=== PATIENT | female | born 1990 | race Caucasian/White ===

== ENCOUNTER 2020-07-01 08:08 | Outpatient (RCR) | payer OTHER, SELFPAY ==
[2020-06-29 15:16] LABS: Basophils Percent Auto 0.4 % (0.2-1.2); Eosinophils Absolute Auto 0.1 K/mm3 (0-0.3); Eosinophils Percent Auto 1.3 % (0-4.4); Hematocrit 36.9 % (37.0-47.0); Hemoglobin 12.6 g/dL (12.0-15.0); Immature Granulocyte Absolute 0.03 K/mm3 (0.00-0.031); Immature Granulocyte Percent A 0.3 % (0-0.5); Lymphocytes Absolute Auto 2.65 K/mm3 (0.9-3.2); Lymphocytes Percent Auto 25.5 % (18.3-44.2); Mean Corpuscular HGB Conc 34.1 g/dl (32-36); Mean Corpuscular Hemoglobin 30.7 pg (26-34); Mean Corpuscular Volume 89.8 fl (80-100); Mean Platelet Volume 10.9 fl (7.4-10.4); Monocytes Absolute Auto 0.5 K/mm3 (0.1-0.6); Monocytes Percent Auto 4.4 % (2.6-8.5); Neutrophils Absolute Auto 7.1 K/mm3 (1.3-6.7); Neutrophils Percent Auto 68.1 % (45.5-73.1); Platelet Count Result 257 k/mm3 (150-375); Red Blood Count 4.11 M/mm3 (4.2-5.4); Red Cell Distribution Width 13.4 % (11.5-14.5); White Blood Count 10.4 K/mm3 (4.5-10.0)
[2020-06-29 15:23] LABS: Hemoglobin A1C 4.8 % (<5.7)
[2020-06-29 16:10] LABS: HIV 1/2 Ab P24 Ag Result Negative (Negative)
[2020-06-29 16:29] LABS: Vitamin D 25 Hydroxy 41.4 ng/mL
[2020-06-29 16:43] LABS: Hepatitis B Surface Antigen Negative (Negative)
[2020-06-30 13:21] LABS: Rapid Plasma Reagin Non-Reactive (NonReactive)
[2020-07-01] MEDS: RHO(D) IMMUNE GLOBULIN 300 MCG SYRINGE IM (16:56)
== END 2020-07-01 23:08 | disposition home or self-care (01) ==
LOC: ANHLAB 08:08
PROVIDERS: Visit Provider Nurse Practitioner
DX: Z29.13 Encounter for prophylactic Rho(D) immune globulin (principal); Z11.4 Encounter for screening for human immunodeficiency virus [HIV]; O36.0990 Maternal care for other rhesus isoimmunization, unspecified trimester, not applicable or unspecified; Z3A.00 Weeks of gestation of pregnancy not specified
CPT/HCPCS: 36415; 82306; 83036; 85025; 85461; 86592; 86703; 86762; 87340; 90384; 96372; G0432; J2790

== ENCOUNTER 2020-08-19 16:13 | Outpatient (CLI) | payer OTHER, SELFPAY ==
--- NOTE | ~2020-08-19 | US_ITS ---
EXAMINATION: US OB /maternal detail DATE: 08/19/2020 18:00 INDICATION: survey TECHNIQUE: Multiple obstetric sonographic images performed. FINDINGS: No prior studies for comparison. There is a single living fetus in variable presentation. The placenta is anterior without placenta p revia. Amniotic fluid volume is normal. WILMER measures 15.1 cm. cardiac activity and movement is noted with a heart rate of 1:30 beats per minute. The following anatomy was identified as normal: 4 chamber heart 3 vessel cord cord insertion kidneys urinary bladder stomach diaphragm ventricles cisterna magna cerebellum The spine is not well visualized due to lie. Recommend attention on the spine on subsequent katiuska dy. The following biometric data were obtained: BPD: 46mm corresponds to gestational age 19 weeks 6 days. Head circumference: 173 mm corresponds to gestational age 19 weeks 6 days. Abdominal circumference: 146 mm corresponds to gestational age 19 weeks 6 days. Femur length: 31 mm corresponds to gestational age 19 weeks 4 days. Head circumference to abdominal circumference ratio: 1.18 (normal range for expected gestational age is 1.08-1.26). Estimated weight: 311 grams +/- 47 grams using Hadlock method. IMPRESSION: 1: Single living intrauterine with an estimated gestational age of 19weeks 6days by current ultrasound measurements, with an EDC of 01/07/2021 in variable presentation. 2. Limited visualization of the spine due to lie. Otherwise, unremarkable survey. Recomm end attention of the spine on subsequent studies. Reviewed, dictated and finalized at location B. EOTYPER APPRENTICE IMPRESSION: 1: Single living intrauterine with an estimated gestational age of 19 weeks 6days by current ultrasound measurements, with an EDC of 01/07/2021 in [place] iable presentation. 2. Limited visualization of the spine due to lie. Otherwise, unremarkabl e survey. Recommend attention of the spine on subsequent studies.
== END 2020-08-19 16:14 | disposition home or self-care (01) ==
PROVIDERS: Visit Provider Obstetrics & Gynecology Gynecology
DX: Z34.92 Encounter for supervision of normal pregnancy, unspecified, second trimester (principal); Z3A.19 19 weeks gestation of pregnancy
CPT/HCPCS: 76805

== ENCOUNTER 2020-09-14 09:37 | Outpatient (CLI) | payer OTHER, SELFPAY ==
--- NOTE | ~2020-09-14 | US_ITS ---
EXAMINATION: US OB follow up DATE: 09/14/2020 10:16 INDICATION: Incomplete second trimester anatomic survey TECHNIQUE: Real-time ultrasound of the pelvis was performed. The interpreting radiologist was not pre sent for the study. COMPARISON: 08/19/2020 FINDINGS: There is a single living fetus in vertex presentation. The placenta is anterior and 2.3 cm from the internal cervical os. cardiac activity and movement are noted. heart rate is 138 beats per minute (bpm). The amniotic fluid index is subjectively normal. The spine is no rmal in appearance. The following biometric data were obtained: Biparietal diameter (BPD): 5.7 cm; head circumference (HC): 22.7 cm; abdominal circumference (AC): 20 .2 cm; femur length (FL): 4.3 cm. These measurements are concordant. Estimated weight is 706 g +/- 105 g, which correlates with the 85th percentile when 01/07/2021 i s used as estimated date of delivery. As single measurements, these parameters are each equal to the following estimated gestational ages w ith ranges of +/- 2 standard deviations: BPD: 23 weeks 5 days +/- 1 weeks 5 days. HC: 24 weeks 5 days +/- 2 weeks 0 days. AC: 24 weeks 6 days +/- 2 weeks 1 days. FL: 24 weeks 1 days +/- 2 weeks 1 days. estimated gestational age based solely on measurements from this exam is 24 weeks 3 days +/- 1 weeks 5 days. IMPRESSION: 1. Single living fetus in vertex presentation. 2. Normal-appearing spine. 3. Estimated weight is 706 g +/- 105 g, which correlates with the 85th percentile when 1 is used as estimated date of delivery. Reviewed, dictated and finalized at location A. TECHNICIAN IMPRESSION: 1. Single living fetus in vertex presentation. 2. Normal-appearing spine. 3. Estimated weight is 706 g +/- 105 g, which correlates with the 85th pe rcentile when 01/07/2021 is used as estimated date of delivery.
== END 2020-09-14 09:38 | disposition home or self-care (01) ==
PROVIDERS: PCP Family Medicine; Visit Provider Obstetrics & Gynecology Gynecology
DX: Z34.92 Encounter for supervision of normal pregnancy, unspecified, second trimester (principal); Z3A.24 24 weeks gestation of pregnancy
CPT/HCPCS: 76816

== ENCOUNTER 2020-10-15 07:31 | Outpatient (RCR) | payer OTHER, SELFPAY ==
[2020-10-15 08:53] LABS: Hemoglobin 10.5 g/dL (12.0-15.0)
[2020-10-15 09:04] LABS: Glucose 1 Hour PP 50gm Dose 167 mg/dL
[2020-10-15 09:46] LABS: HIV 1/2 Ab P24 Ag Result Negative (Negative)
[2020-10-15] MEDS: RHO(D) IMMUNE GLOBULIN 300 MCG SYRINGE IM (15:24)
--- NOTE | 2021-01-04 07:30 | P.HP_ITS ---
H&P: HPI History of Present Illness Date/Time: 01/04/21 07:30 The patient is a 30-year-old 3 para 2 admitted at 39 weeks for repeat section. The patient has had gestational diabetes controlled with insulin and diet. nonstress tests have been reactive. labs O negative rubella immune RPR negative hepatitis-B surface antigen negative and HIV negative. Group B strep culture also negative. Patient has had 2 prior sections and presents today for delivery. Chief Complaint: 39 weeks for delivery Review of Systems Review of Systems: Narrative: not repeated day of surgery; patient states no changes in status [facility] Surgical History Surgical History (Updated 01/04/21 @ 07:33 by Peg Galicia MD) S/P x 2 Family History Family History (Updated 12/18/20 @ 12:38 by Jameson Kyle RN) Grandparent Breast cancer in female Legally blind Father Hx of heart artery stent Social History Social History Smoking status: Never smoker Substance use: never Spiritual care concerns: No Meds Home Medications and Allergies Home Medications Medication Instructions Recorded Confirmed Type ergocalciferol (vitamin D2) 1,250 mcg PO WEEKLY 12/18/20 12/18/20 History [Vitamin D2] ferrous sulfate 325 mg PO BID 12/18/20 12/18/20 History insulin NPH isoph U-100 human 10 unit SUBCUT HS 12/18/20 12/18/20 History [Humulin N NPH U-100 Insulin] prenat.vits,sawyer,uub-romh-kcflg 1 tablet PO DAILY 12/18/20 12/18/20 History [ #2] Allergies Allergy/AdvReac Type Severity Reaction Status Date / Time No Known Allergies Allergy Verified 12/18/20 12:30 Exam Const: General: comfortable and no acute distress Resp: Effort & Inspection: normal respiratory effort Auscultation: clear to auscultation bilaterally Cardio: Rate: regular rate Rhythm: regular rhythm GI: GI Palp: No abdominal tenderness, Yes Soft to palpation and Yes Other GI palpation findings present (FH 39 cm) Assessment and Plan Assessment and plan (1) 39 weeks gestation of : Code(s): Z3A.39 - 39 weeks gestation of Status: Acute (2) History of : Code(s): Z98.891 - History of uterine scar from previous surgery Status: Acute Assessment and Plan: plan to proceed with repeat (3) GDM, class A2: Code(s): O24.419 - Gestational diabetes mellitus in , unspecified control Status: Acute Assessment and Plan: plan 6 wk pp 2 hour GTT
--- NOTE | 2021-01-04 07:30 | WPDHPUPDATE1 ---
History and Physical Update Update Date/Time: 01/04/21 07:30 History and Physical has been reviewed, including an updated exam of the patient. There are NO changes in the patient's condition. Risks, benefits, and alternatives have been discussed and questions answered. Patient agrees to proceed with procedure.
--- NOTE | 2021-01-04 08:27 | WPDANESEPPF ---
Anes - Initial Pre Proc Eval Procedure: Operation Date: 01/04/21 09:00 Proposed Procedures p Repeat Section - Peg Galicia MD Date/Time: 01/04/21 08:27 Surgeon: Peg Galicia MD Pre Op Diagnosis: z34.93, Previous Patient Data Age: 30 Gender: F Height: Weight: Allergies Allergy/AdvReac Type Severity Reaction Status Date / Time No Known Allergies Allergy Verified 12/18/20 12:30 Home Medications Medication Instructions Recorded Confirmed Type ergocalciferol (vitamin D2) 1,250 mcg PO WEEKLY 12/18/20 01/04/21 History [Vitamin D2] ferrous sulfate 325 mg PO BID 12/18/20 01/04/21 History insulin NPH isoph U-100 human 10 unit SUBCUT HS 12/18/20 01/04/21 History [Humulin N NPH U-100 Insulin] prenat.vits,sawyer,zcq-mozu-mrjqq 1 tablet PO DAILY 12/18/20 01/04/21 History [ #2] Patient hx anesthesia problems: none Family hx anesthesia problems: none PMFSH Past Medical History Medical History (Updated 01/04/21 @ 08:27 by Devin Vega MD) GDM, class A2 Surgical History Surgical History (Updated 01/04/21 @ 07:33 by Peg Galicia MD) S/P x 2 Family History Family History (Updated 12/18/20 @ 12:38 by Jameson Kyle RN) Grandparent Breast cancer in female Legally blind Father Hx of heart artery stent Social History Social History Smoking status: Never smoker Substance use: never Spiritual care concerns: No Anes - Eval Final PreProcedure Day of Procedure 01/04/21 08:27 Patient weight: obese Heart: regular rate and rhythm Lungs: clear to auscultation and normal air movement Airway: Mallampati scale class II Neurological: alert and oriented Last oral intake: >/= 8 hours ASA classification: III Emergent: no Anesthetic plan: proceed Anesthesia type and monitoring: regional spinal Informed Consent: The patient's anesthetic plan and its attendant risks and benefits were discussed with the patient/family/POA. Questions were solicited and answers provided to the satisfaction of the patient/family/POA.
== END 2021-01-13 23:59 | disposition home or self-care (01) ==
LOC: ANHLAB 07:31
PROVIDERS: PCP Family Medicine; Visit Provider Obstetrics & Gynecology Gynecology
DX: Z29.13 Encounter for prophylactic Rho(D) immune globulin (principal); Z11.4 Encounter for screening for human immunodeficiency virus [HIV]; O36.0190 Maternal care for anti-D [Rh] antibodies, unspecified trimester, not applicable or unspecified; Z3A.00 Weeks of gestation of pregnancy not specified
CPT/HCPCS: 36415; 82306; 82947; 85014; 85018; 85461; 86703; 90384; 96372; G0432; J2790

== ENCOUNTER 2020-10-15 16:01 | Outpatient (CLI) | payer OTHER, SELFPAY ==
--- NOTE | ~2020-10-15 | US_ITS ---
US OB limited DATE: 10/15/2020 16:37 INDICATION: Low lying placenta TECHNIQUE: Real-time imaging and Doppler analysis COMPARISON: 09/14/2020 obstetrical ultrasound follow-up FINDINGS: Live parisi intrauterine gestation, fetus in vertex presentation, longitudinal lie. Feta l heart rate of 138 bpm. Anterior placenta, lower margin 5.1 cm above the internal os. Subjectively normal amount of amniotic fluid. IMPRESSION: Anterior placenta; no evidence for placenta previa Reviewed, dictated and finalized at Location A. Reviewed, dictated and finalized at location A. AL NURSE
== END 2020-10-15 16:02 | disposition home or self-care (01) ==
PROVIDERS: PCP Family Medicine; Visit Provider Obstetrics & Gynecology Gynecology
DX: O44.42 Low lying placenta NOS or without hemorrhage, second trimester (principal); Z3A.00 Weeks of gestation of pregnancy not specified
CPT/HCPCS: 76815

== ENCOUNTER 2020-12-06 09:07 | Outpatient (RCR) | payer OTHER, SELFPAY ==
[2020-11-18 17:08] VITALS: BP 129/66; PULSE 80
[2020-11-21 09:30] VITALS: BP 129/68; PULSE 84
[2020-12-03 16:13] VITALS: BP 122/67; PULSE 90
[2020-12-06 09:35] VITALS: BP 121/70; PULSE 76
== END 2021-01-06 08:06 | disposition home or self-care (01) ==
LOC: ANHOBOP 09:07
PROVIDERS: PCP Family Medicine; Visit Provider Obstetrics & Gynecology Gynecology
DX: O24.419 Gestational diabetes mellitus in pregnancy, unspecified control (principal); Z3A.32 32 weeks gestation of pregnancy; Z3A.34 34 weeks gestation of pregnancy
CPT/HCPCS: 59025

== ENCOUNTER 2021-01-02 08:11 | Outpatient (CLI) | payer OTHER, SELFPAY ==
[2021-01-02 09:37] LABS: Hematocrit 32.8 % (37.0-47.0); Hemoglobin 11.2 g/dL (12.0-15.0); Mean Corpuscular HGB Conc 34.1 g/dl (32-36); Mean Corpuscular Hemoglobin 31.2 pg (26-34); Mean Corpuscular Volume 91.4 fl (80-100); Mean Platelet Volume 11.3 fl (7.4-10.4); Platelet Count Result 204 k/mm3 (150-375); Red Blood Count 3.59 M/mm3 (4.2-5.4); Red Cell Distribution Width 14.6 % (11.5-14.5); White Blood Count 9.8 K/mm3 (4.5-10.0)
[2021-01-04 06:40] LABS: Rapid Plasma Reagin Non-Reactive (NonReactive)
== END 2021-01-02 08:12 | disposition home or self-care (01) ==
PROVIDERS: PCP Family Medicine; Visit Provider Obstetrics & Gynecology Gynecology
DX: Z01.812 Encounter for preprocedural laboratory examination (principal); O34.219 Maternal care for unspecified type scar from previous cesarean delivery; Z3A.39 39 weeks gestation of pregnancy; O24.419 Gestational diabetes mellitus in pregnancy, unspecified control
CPT/HCPCS: 36415; 85027; 86592; 86850; 86900; 86901

== ENCOUNTER 2021-01-04 06:49 | Inpatient (IN) | payer OTHER, SELFPAY ==
--- NOTE | 2020-12-18 12:52 | PC.NURSE ---
VERIFIED WITH OR SCHEDULE AND PATIENT--C/S ON 01/04/21 AT 9 AM PATIENT GIVEN REQUISITION FOR LAB DRAW ON 01/02/21
[2021-01-04] VITALS (60 sets, daily range): BP systolic 104–146; BP diastolic 50–102; PULSE 58–128; RESP 14–20; TEMP 36.2–36.7; O2SAT 94–100; BMI 44.3
--- NOTE | 2021-01-04 06:49 | LDADM ---
This patient, Krystal Alegria, was admitted to Labor/Delivery/Recovery 119 on 01/04/21 at 06:49. Plans for labor, pain management and were discussed with patient. Patient/family oriented to hospital policies and general routines including ID bracelet, bed and alarms, visiting hours, pain management, procedures, bathroom and other care routines, personal items, smoking policy, room service/diet and guest tray routines, security routines, and visiting hours. Patient/Family are encouraged to report perceived risks to care and to ask questions if they do not understand what they are told or what they should do. See OBIX for further documentation.
--- NOTE | 2021-01-04 07:30 | HP_ITS ---
This report was moved to the correct visit, [id number] on 01/07/21. Original report was signed by Peg Galicia MD on 01/04/21 5035. H&P: HPI History of Present Illness Date/Time: 01/04/21 07:30 The patient is a 30-year-old 3 para 2 admitted at 39 weeks for repeat section. The patient has had gestational diabetes controlled with insulin and diet. nonstress tests have been reactive. labs O negative rubella immune RPR negative hepatitis-B surface antigen negative and HIV negative. Group B strep culture also negative. Patient has had 2 prior sections and presents today for delivery. Chief Complaint: 39 weeks for delivery Review of Systems Review of Systems: Narrative: not repeated day of surgery; patient states no changes in status [facility] [place] Surgical History Surgical History (Updated 01/04/21 @ 07:33 by Peg Galicia MD) S/P x 2 Family History Family History (Updated 12/18/20 @ 12:38 by Jameson Kyle RN) Grandparent Breast cancer in female Legally blind Father Hx of heart artery stent Social History Social History Smoking status: Never smoker Substance use: never Spiritual care concerns: No Meds Home Medications and Allergies Home Medications Medication Instructions Recorded Confirmed Type ergocalciferol (vitamin D2) 1,250 mcg PO WEEKLY 12/18/20 12/18/20 History [Vitamin D2] ferrous sulfate 325 mg PO BID 12/18/20 12/18/20 History insulin NPH isoph U-100 human 10 unit SUBCUT HS 12/18/20 12/18/20 History [Humulin N NPH U-100 Insulin] prenat.vits,sawyer,dgw-kzjw-nparl 1 tablet PO DAILY 12/18/20 12/18/20 History [ #2] Allergies Allergy/AdvReac Type Severity Reaction Status Date / Time No Known Allergies Allergy Verified 12/18/20 12:30 Exam Const: General: comfortable and no acute distress Resp: Effort & Inspection: normal respiratory effort Auscultation: clear to auscultation bilaterally Cardio: Rate: regular rate Rhythm: regular rhythm GI: GI Palp: No abdominal tenderness, Yes Soft to palpation and Yes Other GI palpation findings present (FH 39 cm) Assessment and Plan Assessment and plan (1) 39 weeks gestation of : Code(s): Z3A.39 - 39 weeks gestation of Status: Acute (2) History of : Code(s): Z98.891 - History of uterine scar from previous surgery Status: Acute Assessment and Plan: plan to proceed with repeat (3) GDM, class A2: Code(s): O24.419 - Gestational diabetes mellitus in , unspecified control Status: Acute Assessment and Plan: plan 6 wk pp 2 hour GTT This dictation may have been done utilizing a voice recognition system. Attempts have been made to correct errors. However, there may be uncorrected grammatical, spelling, and recognition errors present. Report Initialized date/time: Peg Galicia MD 01/04/21733 Electronically signed by: Peg Galicia MD 01/04/21733 [facility]
--- NOTE | 2021-01-04 07:30 | HP_ITS ---
This report was moved to the correct visit, [id number] on 01/07/21. Original report was signed by Peg Galicia MD on 01/04/21729. History and Physical Update Update Date/Time: 01/04/21 07:30 History and Physical has been reviewed, including an updated exam of the patient. There are NO changes in the patient's condition. Risks, benefits, and alternatives have been discussed and questions answered. Patient agrees to proceed with procedure. This dictation may have been done utilizing a voice recognition system. Attempts have been made to correct errors. However, there may be uncorrected grammatical, spelling, and recognition errors present. Report Initialized date/time: Peg Galicia MD 01/04/21729 Electronically signed by: Peg Galicia MD 01/04/21729 [facility]
[2021-01-04] MEDS: LACTATED RINGERS 1,000 ML 125 ML IV CONT ×2 (07:38→08:45)
--- NOTE | 2021-01-04 08:27 | PN_ITS ---
This report was moved to the correct visit, [id number] on 01/11/21. Original report was signed by Devin Vega MD on 01/04/21 0828. Anesthesiology Progress Note Signed Anes - Initial Pre Proc Eval Procedure: Operation Date: 01/04/21 09:00 Proposed Procedures p Repeat Section - Peg Galicia MD Date/Time: 01/04/21 08:27 Surgeon: Peg Galicia MD Pre Op Diagnosis: z34.93, Previous Patient Data Age: 30 Gender: F Height: Weight: Allergies Allergy/AdvReac Type Severity Reaction Status Date / Time No Known Allergies Allergy Verified 12/18/20 12:30 Home Medications Medication Instructions Recorded Confirmed Type ergocalciferol (vitamin D2) 1,250 mcg PO WEEKLY 12/18/20 01/04/21 History [Vitamin D2] ferrous sulfate 325 mg PO BID 12/18/20 01/04/21 History insulin NPH isoph U-100 human 10 unit SUBCUT HS 12/18/20 01/04/21 History [Humulin N NPH U-100 Insulin] prenat.vits,sawyer,dwi-krjj-rpoib 1 tablet PO DAILY 12/18/20 01/04/21 History [ #2] Patient hx anesthesia problems: none Family hx anesthesia problems: none PMFSH Past Medical History Medical History (Updated 01/04/21 @ 08:27 by eDvin Vega MD) GDM, class A2 Surgical History Surgical History (Updated 01/04/21 @ 07:33 by Peg Galicia MD) S/P x 2 Family History Family History (Updated 12/18/20 @ 12:38 by Jameson Kyle RN) Grandparent Breast cancer in female Legally blind Father Hx of heart artery stent Social History Social History Smoking status: Never smoker Substance use: never Spiritual care concerns: No Anes - Eval Final PreProcedure Day of Procedure 01/04/21 08:27 Patient weight: obese Heart: regular rate and rhythm Lungs: clear to auscultation and normal air movement Airway: Mallampati scale class II Neurological: alert and oriented Last oral intake: >/= 8 hours ASA classification: III Emergent: no Anesthetic plan: proceed Anesthesia type and monitoring: regional spinal Informed Consent: The patient's anesthetic plan and its attendant risks and benefits were discussed with the patient/family/POA. Questions were solicited and answers provided to the satisfaction of the patient/family/POA. This dictation may have been done utilizing a voice recognition system. Attempts have been made to correct errors. However, there may be uncorrected grammatical, spelling, and recognition errors present. Report Initialized date/time: Devin Vega MD 01/04/21827 Electronically signed by: Devin Vega MD 01/04/21827 [facility]
[2021-01-04] MEDS: ceFAZolin 2 GM/D5W 50 ML 2 GM/50 ML BAG IVPB (09:34)
--- NOTE | 2021-01-04 10:25 | P.OP_ITS ---
Procedure Note - Detailed Date of procedure: 01/04/21 Pre-op diagnosis: Repeat section IUP 39 wks; GDMA2 Post-op diagnosis: same (plus uterine dehisince) Procedure performed: repeat LTCS Description of procedure: The patient is taken to the operating room and placed under anesthesia in the dorsal supine position with a leftward tilt. She is prepped and draped in the usual sterile fashion. Once anesthesia was deemed adequate a Pfannenstiel skin incision is made through the prior incision. The incision was carried down to the fascia which was nicked in the midline. Incision is extended laterally using Valentin scissors. Ochsner is used to tent the fascia which was then dissected off using sharp and blunt dissection. The rectus muscles are in the midline and the peritoneum entered. The kita dder blade is placed and the vesicouterine peritoneum tented entered with Metzenbaum and extended laterally the bladder flap was created digitally and during this process the uterine dehiscence is obvious. The hair is visible through the membranes there is no visible muscle over the entire lower uterine segment. Membranes are ruptured and the fully delivered. The cord is clamped and the infant handed to the waiting nursery nurse. The placenta was removed using manual traction. The uterus is cleared of all clots and debris and exteriorized. The uterine incision is closed with some difficulty due to the muscle being a very distal to the incision site. The Lower muscle kept pulling through as I would suture. The incision is closed in a running locked fashion and same suture is used to imbricate no defects are noted in the incision 1 additional othemj-jv-mmice suture was required for hemostasis. The cul-de-sac is irrigated, the uterus is returned to the abdomen, and the gutters are irrigated. The fascia was then closed using 0 Vicryl in a running fashion. Subcutaneous tissues are irrigated and made hemostatic using Bovie cautery. Skin incision is closed using 4 0 Vicryl in a subcuticular fashion and Dermaflex was placed over the incision. Sponge, needle, and instrument counts are correct per the OR staff. The patient is taken to recovery in stable condition. It is recommended to the patient and her spouse that she not have further children due to the large uterine dehiscence. The father was shown the area prior to incising the membranes. Patient voices understanding and had decided that she had completed her childbearing prior to the . Anesthesia: spinal Surgeon: Peg Galicia MD Estimated blood loss (mL): 525 Drains: Yes (bateman) Packing: No Pathology: yes (placenta) Complications: No immediate complications Condition: stable Disposition: PACU Findings: There is a uterine dehiscence across the entire lower uterine segment. Male 7 lb 7 oz with 8 and 8 Apgars. Normal-appearing tubes and ovaries and the uterus is otherwise normal appearing.
--- NOTE | 2021-01-04 10:31 | PM.OBDSVD ---
DS: Admitting Diagnosis Admitting Diagnosis Admitting Diagnosis: Intrauterine at 39 weeks Gestational diabetes insulin-requiring Previous section x2 DS: Discharge Diagnosis Discharge Diagnosis (1) GDM, class A2: Code(s): O24.419 - Gestational diabetes mellitus in , unspecified control Status: Acute (2) 39 weeks gestation of : Code(s): Z3A.39 - 39 weeks gestation of Status: Acute (3) History of : Code(s): Z98.891 - History of uterine scar from previous surgery Status: Acute OB - DS: Summary OB Procedures : NST and Ultrasound OB Procedures Intrapartum: (Uterine dehiscence across the entire lower uterine segment) low cervical, transverse OB Procedures: : None Peripartum Data Delivery Method: Section complications: none Status at Discharge Functional status at discharge: independent ambulation Overall status at discharge: patient is progressing back to baseline Time Spent with Patient Time attestation: Total time spent providing and/or coordinating discharge services: Discharge Plan Discharge Attending physician on discharge: Peg Galicia Discharging Clinician: Peg Galicia Anticipated Discharge Date/Time: 01/07/21 10:33 Patient Disposition: Home, Self-Care Activity: may shower, may drive after 2 weeks and pelvic rest Diet: regular Wound Care Instructions: incision open to air Discharge Instructions: Education: Mom and Baby Guide Given to: Mother Follow-Up: Call your delivering provider's office for an appointment to be seen in: 1 Week [facility]. Appointment Date/Time: January 07, 2021 at 10:00 am What to expect at your follow-up visit: Blood Pressure Check Call [phone] if you are unable to keep your appointment time. BREAST CARE: * Wear a snug supportive bra. * For engorgement discomfort: Breast Feeding: * Apply warm moist washcloths * Express milk as needed to relieve engorgement * Wear loose clothing Bottle Feeding: * May apply ice packs * For sore nipples: * Identify correct latch-on * Apply warm moist washcloths before and after nursing * Air dry nipples after nursing * May apply Lansinoh cream to nipples ABDOMINAL INCISION: (if applicable) * Allow incision to air dry * Do NOT use lotions for powders on your incision * When showering, allow soap and water to run over the incision, but do not wash incision PERINEAL CARE: * Until bleeding stops, use your joel bottle after urinating * Change your pad frequently throughout the day * No tub baths until seen by your physician - You may shower ACTIVITY: * Rest as much as possible. * Do not exercise or lift anything heavier than your baby (such as laundry or other children.) * Avoid stairs or driving as much as possible. * Do not put anything into the vagina. No douching, tampons, or sexual activity until seen by physician. NOTIFY PHYSICIAN IF YOU HAVE ANY QUESTIONS OR IF ANY OF THE FOLLOWING SYMPTOMS OCCUR: * If your incision becomes red, swollen, or more painful than what you have experienced in the hospital. * If your vaginal bleeding becomes foul smelling. * If your vaginal bleeding becomes more heavy than a period or if your bleeding changes from pink to bright red. However, you may pass an occasional walnut-sized clot once or twice for the first week . * If you experience a sharp, shooting pain in you calves. * If you discover a hard, reddened area on your breast or if you experience flu-like symptoms. * If you have a fever of 100.4 or greater DIET: * Eat regular, well-balanced meals. * Drink plenty of fluids daily. If , drink to thirst. Patient Instru
[2021-01-04] MEDS: MORPHINE SULFATE (*CRX) 2 MG/ML INJ IV PUSH ×2 (12:08→12:33)
[2021-01-04] MEDS: OXYTOCIN 30 UNITS/NS 500 ML 30 UNITS/500 ML BAG 125 UNITS IV CONT (12:09)
--- NOTE | 2021-01-04 12:52 | PC.NURSE ---
Patient transferred to post room #290 via stretcher. Support person present. Oriented to unit, room, information board, rooming in, admission packet and security measures. Patient verbalizes understanding.
[2021-01-04] MEDS: ONDANSETRON INJ 4 MG/2 ML VIAL IV PUSH (13:24)
--- NOTE | 2021-01-04 14:05 | PC.NURSE ---
Consulted with patient, mother reports this to be 3rd child to attempt to breastfeed. Mother reports low milk supply with first two, reporting difficulties with latching and infants sleepy not eagerly latching. has had a tied tongue, ICP performed a frenulectomy after first feeding. Mother reports she did not feel the tongue affected latch with first feeding. Discussed the tongue and how it may impact latch and empting the breast. Reviewed feeding cues, frequencies, duration of feedings, feeding elimination flow sheet, and signs of adequate intake. Demonstrated stimulation techniques to wake infant for feeding. Assisted with infant to breast. Reviewed positioning/alignment in cross cradle, holding breast in U hold and guided asymmetrical latch on. Infant was able to latch correctly. nursed eagerly, with steady draws and occasional swallowing noted. Reviewed signs of a correct latch, effective nursing and suck swallow ratio. Mother reported tenderness at times, had slipped to shallow latch. Demonstrated how to adjust latch more deeply while feeding. Mother quickly reports she can feel is latched more deeply and has minimal tenderness. Suggested to stimulate while feeding to keep awake and nursing effectively for increased stimulation and increased intake. Instructed mother to call out for RN assistance if she is unable to latch for feeding or she has discomfort with nursing. Reviewing feeding should be initiated three hours from start of last feeding or if feeding cues are noted before. Mother voiced understanding of information shared.
[2021-01-04] MEDS: DEXTROSE 5%/0.45% SOD CHL 1,000 ML 125 ML IV CONT (16:12)
[2021-01-04] MEDS: KETOROLAC 30 MG/ML VIAL (*BKC) IV PUSH (16:13)
[2021-01-04] MEDS: HYDROcodone/acetaminophen (*CRX) 5-325 MG TABLET 1 TAB PO (21:07)
[2021-01-05 04:45] VITALS: BP 138/71; PULSE 81; RESP 16; TEMP 36.4; O2SAT 100
[2021-01-05] MEDS: IBUPROFEN 600 MG TABLET PO ×3 (04:51→20:02)
[2021-01-05] MEDS: HYDROcodone/acetaminophen (*CRX) 5-325 MG TABLET 1 TAB PO ×5 (04:52→20:02)
[2021-01-05 05:39] LABS: Basophils Percent Auto 0.2 % (0.2-1.2); Eosinophils Absolute Auto 0.2 K/mm3 (0-0.3); Eosinophils Percent Auto 1.6 % (0-4.4); Hematocrit 28.5 % (37.0-47.0); Hemoglobin 9.6 g/dL (12.0-15.0); Immature Granulocyte Absolute 0.04 K/mm3 (0.00-0.031); Immature Granulocyte Percent A 0.4 % (0-0.5); Lymphocytes Absolute Auto 1.99 K/mm3 (0.9-3.2); Lymphocytes Percent Auto 20.9 % (18.3-44.2); Mean Corpuscular HGB Conc 33.7 g/dl (32-36); Mean Corpuscular Hemoglobin 30.8 pg (26-34); Mean Corpuscular Volume 91.3 fl (80-100); Monocytes Absolute Auto 0.6 K/mm3 (0.1-0.6); Neutrophils Absolute Auto 6.8 K/mm3 (1.3-6.7); Neutrophils Percent Auto 70.9 % (45.5-73.1); Platelet Count Result 171 k/mm3 (150-375); Red Blood Count 3.12 M/mm3 (4.2-5.4); Red Cell Distribution Width 14.8 % (11.5-14.5); White Blood Count 9.5 K/mm3 (4.5-10.0)
--- NOTE | 2021-01-05 07:51 | PM.OBPNVD ---
OB - PN: Subj Subjective Date/time seen: 01/05/21 07:51 Patient comments: no complaints and pain well controlled baby status: doing well OB - PN: Obj Data Labs CBC & Chem 7: 01/05/21 04:59 Labs: Laboratory Results - last 24 hr 01/05/21 04:59 WBC 9.5 RBC 3.12 L Hgb 9.6 L Hct 28.5 L MCV 91.3 MCH 30.8 MCHC 33.7 RDW 14.8 H Plt Count 171 MPV 11.0 H Immature Gran % (Auto) 0.4 Neut % (Auto) 70.9 Lymph % (Auto) 20.9 Henderson % (Auto) 6.0 Eos % (Auto) 1.6 Baso % (Auto) 0.2 Lymph # (Auto) 1.99 Henderson # (Auto) 0.6 Eos # (Auto) 0.2 Baso # (Auto) 0.0 Abs Immat Gran (auto) 0.04 H Absolute Neuts (auto) 6.8 H Absolute Nucleated RBC 0.0 Nucleated RBC % 0.0 OB - PN A/P Plan day: 1 Plan: routine care Time Spent With Patient Time: Total time spent is greater than 50% in coordination of care (as documented) at patient's floor/unit and/or counseling patient: Exam Narrative: Exam Narrative: inc c/d/i : Bimanual exam- vagina & uterus: other (Uterus firm, nt @U)
[2021-01-05 07:55] VITALS: BP 113/58; PULSE 81; RESP 14; TEMP 37.1; O2SAT 100
[2021-01-05] MEDS: DOCUSATE SODIUM 100 MG CAPSULE PO ×2 (08:44→16:07)
[2021-01-05] MEDS: MULTIVIT/MIN/PREN/FOL AC/IRON TABLET 1 TAB PO (08:44)
[2021-01-05] MEDS: POLYSACCHARIDE IRON COMPLEX 150 MG CAPSULE PO ×2 (08:44→16:07)
--- NOTE | 2021-01-05 11:00 | PC.NURSE ---
Mother called out for assist with feeding. Mother states she has attempted to wake for several minutes. Reviewed may be sleepy for 1-2 feedings after circumcision. Mother has slight nipple discomfort with and latch during feeding at times. Reviewed nipple care of lanolin, warm compresses several times per day as needed. Both nipples are slightly reddened. Demonstrated stimulation techniques to wake infant for feeding. Assisted with infant to breast. Reviewed positioning/alignment in cross cradle, holding breast in U hold and guided asymmetrical latch on. Infant was able to latch within a few attempts. nursed eagerly, with steady draws and frequent swallowing noted followed by long pausing. Reviewed signs of a correct latch, effective nursing and suck swallow ratio. Mother reported tenderness at times, infant had slipped to shallow latch. Demonstrated how to adjust latch more deeply while feeding. Mother quickly reports she can feel is latched more deeply and has minimal tenderness. Suggested to stimulate infant while feeding to keep infant awake and nursing effectively for increased stimulation and increased intake. Instructed mother to call out for RN assistance if she is unable to latch for feeding or she has discomfort with nursing. Instructed feeding should be initiated three hours from start of last feeding or if feeding cues are noted before. Mother voiced understanding of information shared.
--- NOTE | 2021-01-05 13:35 | PC.NURSE ---
Mother called out for assist with feeding. Infant again sleepy and not waking for feeding. Demonstrated stimulation techniques to wake. Several minutes to wake infant with feeding cues noted. Infant was able to latch within a few attempts. nursed eagerly, with steady draws and frequent swallowing noted followed by long pausing. Reviewed signs of a correct latch, effective nursing and suck swallow ratio. Mother now independently adjusting latch if infant slips down while feeding. Suggested to stimulate infant while feeding to keep awake and nursing effectively for increased stimulation and increased intake. Instructed mother to call out for RN assistance if she is unable to latch infant for feeding or she has discomfort with nursing. Instructed feeding should be initiated three hours from start of last feeding or if feeding cues are noted before. Mother voiced understanding of information shared.
--- NOTE | 2021-01-05 13:46 | WPDANLDPN2 ---
Anes-Prog Note L&D Date/Time: 01/05/21 13:46 Comfortable throughout: section Neuraxial method: spinal Epidural/Spinal procedure site: clean & non-tender Neuro status: Neuro function grossly intact. Cardiovascular status: normal Respiratory status: normal Airway patency: baseline Mental status: baseline Post-Op hydration status: normal Vital Signs: Last Vital Signs Temp 37.1 C 01/05/21 07:55 Pulse 81 01/05/21 07:55 Resp 14 01/05/21 07:55 BP 113/58 L 01/05/21 07:55 Pulse Ox 100 01/05/21 07:55 Pain score (VAS): 0 I/O: Intake & Output 01/04/21 01/05/21 01/05/21 23:59 07:59 15:59 Intake Total 1514 500 600 Output Total 1800 1850 600 Balance -286 -1350 0 Post-procedural complaints: none Patient feedback: Patient satisfied with anesthetic care.
--- NOTE | 2021-01-05 13:46 | WPDANLDNPN2 ---
Anes-Prog Note L&D-Neuraxial Date/Time: 01/05/21 13:46 Neuraxial medications: intrathecal PF morphine Opiod-related complaints: none Patient feedback: Patient satisfied with post-operative pain management.
[2021-01-05 19:50] VITALS: BP 114/55; PULSE 87; RESP 16; TEMP 36.4; O2SAT 100
[2021-01-06] MEDS: HYDROcodone/acetaminophen (*CRX) 5-325 MG TABLET 1 TAB PO ×3 (05:38→13:13)
[2021-01-06] MEDS: IBUPROFEN 600 MG TABLET PO ×2 (05:38→13:13)
[2021-01-06 07:50] VITALS: BP 126/59; PULSE 88; RESP 14; TEMP 36.4; O2SAT 99
[2021-01-06 08:15] VITALS: PULSE 88; RESP 14; O2SAT 99
--- NOTE | 2021-01-06 08:15 | PC.NURSE ---
PT introductions made and plan of care discussed per post op c section, pain management, breast feeding, daily care activities. PT and spouse both recipients of such instructions using one to one discussion and mom baby care guide. no barriers to learning noted. PT verbalized understanding of such care.
[2021-01-06] MEDS: SIMETHICONE 80 MG TAB.CHEW PO ×2 (08:52→13:12)
[2021-01-06] MEDS: MULTIVIT/MIN/PREN/FOL AC/IRON TABLET 1 TAB PO (08:52)
[2021-01-06] MEDS: POLYSACCHARIDE IRON COMPLEX 150 MG CAPSULE PO (08:52)
[2021-01-06] MEDS: DOCUSATE SODIUM 100 MG CAPSULE PO (08:52)
[2021-01-06] MEDS: LANOLIN (LANSINOH) 7.5 GM CREAM 1 APPLIC TOPICAL (08:53)
--- NOTE | 2021-01-06 11:40 | PC.NURSE ---
Mother called out for assist with feeding due to tenderness to right breast. Right nipple has a scab line to center from possible shallow latch. Discussed frenulum and advised to discuss with her ICP at first visit for evaluation. Mother has concerns 's tongue was not clipped enough and this may be causing her pain with feeding. Reviewed this may impact the latch and tenderness, stressed the importance of working with a deep latch and assisting infant maintain deep latch. Assisted with to breast. Reviewed positioning/alignment in cross cradle, holding breast in u hold and guided asymmetrical latch on. Mother tends to hold breast too close to nipple, suggested she manager background hold up to allow deep latch. Several attempts before was able to latch deeply. Infant nursed eagerly, with steady draws and frequent swallowing noted. Reviewed signs of a correct latch, effective nursing and suck swallow ratio. Infant would pull back while feeding and slip to a shallow latch. Mother reported tenderness at times, had slipped to shallow latch. Demonstrated how to adjust latch more deeply while feeding.and to keep infant in correct alignment with chin up not to chest. Mother quickly reports she can feel is latched more deeply and has minimal tenderness. Mother has concerns with intake due to low milk supply with other children. Suggested mother supplement after breastfeedings if infant is not having required output, not satisfied after feeding at both breasts per feeding or does not feeding or longer than 4 hours. Reviewed follow up RN and ICP will weigh and asses with suggestions with feedings if needed. Suggested to stimulate while feeding to keep awake and nursing effectively for increased stimulation, increased intake and to maintain deep latch. Instructed mother to call out for RN assistance if she is unable to latch infant for feeding or she has discomfort with nursing. Mother states she plans on discharge later today. Observed mother is able to independently latch with appropriate positioning/alignment. She denies any nipple discomfort, is feeding as required and waking to feed if needed. has had at least 8 effective feedings in the past 24 hours, and is currently meeting outcomes for weight, output, jaundice and feeding frequencies. Mother states she feels confident to continue effective at home. Reviewed transition to breast milk, signs of adequate intake, and engorgement/relief. Instructed to call ICP if intake/output less than required. Reviewed regular medications mother is taking. Information provided per Brianna. Reviewed community resources on the [facility] website and in the Mom/Baby guide. Information on outpatient services provided. Mother has no further questions at this time.
[2021-01-07 10:29] VITALS: BP 136/88; PULSE 64; RESP 20; TEMP 36.9; O2SAT 100
== END 2021-01-06 14:35 | disposition home or self-care (01) | DRG 788 ==
LOC: ANHLDR 10:33 → ANHOB2 01-05 14:59 → ANHLDR 01-08 09:30 → ANHOB2 01-08 09:30
PROVIDERS: Admitting Provider Obstetrics & Gynecology Gynecology; PCP Family Medicine; Visit Provider Obstetrics & Gynecology
PROC: 10D00Z1 Extraction of Products of Conception, Low, Open Approach (ICD-10-PCS; CPT 59514; principal; 2021-01-04 09:00)
DX: O34.211 Maternal care for low transverse scar from previous cesarean delivery (principal); O24.424 Gestational diabetes mellitus in childbirth, insulin controlled; O90.0 Disruption of cesarean delivery wound; Z3A.39 39 weeks gestation of pregnancy; Z37.0 Single live birth
CPT/HCPCS: 36415; 85025; 85027; 86592; 86850; 86900; 86901; 88307; A9270; J0131; J0690; J1885; J2270; J2274; J2405; J2590; J7120